=== PATIENT | male | born 1945 | race Hispanic/Latino ===

== ENCOUNTER 2022-05-29 13:40 | Observation (INO) | payer MEDICARE ==
[~2022-05-29] VITALS: Ht 154.9 cm; Wt 83.9 kg
[~2022-05-29 13:40] MED LIST: FINASTERIDE5 MG PO; LISINOPRIL10 MG PO; TAMSULOSIN HCL0.4 MG PO
[2022-05-29] MEDS ORDERED: ONDANSETRON HCL INJ 2MG/ML 2ML 2 MG/ML VIAL IV STA (14:05)
[2022-05-29] MEDS ORDERED: SODIUM CHLORIDE FLUSH 10 ML SYR IV PRN (14:15)
[2022-05-29 14:17] LABS: BASOPHILS % 0.5 % (0.0-1.0); EOSINOPHILS # (AUTO) 0.1 (0.0-0.4); EOSINOPHILS % 2.2 % (0.0-6.0); HEMATOCRIT 43.3 % (38.2-49.6); HEMOGLOBIN 14.2 g/dL (14.0-18.0); LYMPHOCYTES # (AUTO) 2.2 (1.0-3.2); LYMPHOCYTES % 34.9 % (18.0-39.1); MEAN CORPUSCULAR HEMOGLOBIN 31.3 pg (28-32); MEAN CORPUSCULAR HGB CONC 32.8 g/dL (31-35); MEAN CORPUSCULAR VOLUME 95.4 fL (81-99); MONOCYTES # (AUTO) 0.4 (0.2-0.8); MONOCYTES % 6.5 % (4.4-11.3); NEUTROPHILS # (AUTO) 3.5 (2.1-6.9); NEUTROPHILS % 55.1 % (38.7-80.0); PLATELET COUNT 207 x10e3/uL (140-360); RED BLOOD COUNT 4.54 x10e6/uL (4.3-5.7); RED CELL DISTRIBUTION WIDTH 12.9 % (11.7-14.4)
[2022-05-29 14:27] LABS: INR 0.95; PROTHROMBIN TIME 13.5 seconds (11.9-14.5)
[2022-05-29 14:31] LABS: PARTIAL THROMBOPLASTIN TIME 20.6 seconds (23.8-35.5)
[2022-05-29 14:38] LABS: ALANINE AMINOTRANSFERASE 21 IU/L (0-55); ALBUMIN 3.7 g/dL (3.5-5.0); ALBUMIN/GLOBULIN RATIO 1.1 (0.8-2.0); ALKALINE PHOSPHATASE 74 IU/L (40-150); ANION GAP 17.5 mmol/L (8-16); BLOOD UREA NITROGEN 19 mg/dL (7-26); BUN/CREATININE RATIO 24 (6-25); CALCIUM 8.6 mg/dL (8.4-10.2); CARBON DIOXIDE 20 mmol/L (22-29); CHLORIDE 107 mmol/L (98-107); CREATININE, SERUM 0.79 mg/dL (0.72-1.25); GLUCOSE 169 mg/dL (74-118); POTASSIUM 3.5 mmol/L (3.5-5.1); SODIUM 141 mmol/L (136-145)
[2022-05-29] MEDS ORDERED: ONDANSETRON HCL INJ 2MG/ML 2ML 2 MG/ML VIAL IV PRN (16:00)
[2022-05-29 16:04] LABS: CLARITY,URINE SL CLOUDY (CLEAR); COLOR,URINE STRAW (YELLOW); KETONES,URINE NEGATIVE (NEGATIVE); LEUKOCYTE ESTERASE ,URINE NEGATIVE (NEGATIVE); NITRITE,URINE NEGATIVE (NEGATIVE); PROTEIN,URINE DIPSTICK NEGATIVE (NEGATIVE); URINE UROBILINOGEN 0.2 mg/dL (0.2 - 1)
[2022-05-29 16:05] LABS: AMPHETAMINES SCREEN,URINE NEGATIVE (NEGATIVE); BENZODIAZEPINES SCREEN,URINE NEGATIVE (NEGATIVE); PHENCYCLIDINE SCREEN,URINE NEGATIVE (NEGATIVE)
[2022-05-29 16:19] LABS: AMORPHOUS SEDIMENT,URINE FEW (FEW); BACTERIA,URINE FEW /HPF; EPITHELIAL CELLS,URINE FEW /LPF; HYALINE CASTS 0-1 (0-1); MUCUS,URINE MODERATE (RARE); WBC,URINE (MAN) 0-5 /HPF (0-5)
[2022-05-29] MEDS: SODIUM CHLORIDE 0.9% 1000ML 1,000 ML IV SCH (16:32)
[2022-05-29 22:10] VITALS: BP 141/80
[2022-05-29 22:25] LABS: CREATINE KINASE 95 IU/L (30-200)
[2022-05-29] MEDS ORDERED: PROMETHAZINE 12.5MG/ NACL 0.9% 12.5 MG/50 ML BAG IV PRN (22:30)
[2022-05-29 23:00] VITALS: BP 141/80
[2022-05-30] VITALS (7 sets, daily range): BP systolic 105–145; BP diastolic 61–94
[2022-05-30] MEDS: SODIUM CHLORIDE 0.9% 1000ML 1,000 ML IV SCH ×2 (05:19→21:11)
[2022-05-30 06:14] LABS: BASOPHILS % 0.3 % (0.0-1.0); EOSINOPHILS # (AUTO) 0.1 (0.0-0.4); EOSINOPHILS % 0.9 % (0.0-6.0); HEMATOCRIT 38.8 % (38.2-49.6); HEMOGLOBIN 12.6 g/dL (14.0-18.0); LYMPHOCYTES # (AUTO) 1.8 (1.0-3.2); LYMPHOCYTES % 28.1 % (18.0-39.1); MEAN CORPUSCULAR HEMOGLOBIN 31.6 pg (28-32); MEAN CORPUSCULAR HGB CONC 32.5 g/dL (31-35); MEAN CORPUSCULAR VOLUME 97.2 fL (81-99); MONOCYTES # (AUTO) 0.5 (0.2-0.8); MONOCYTES % 7.2 % (4.4-11.3); NEUTROPHILS % 63.2 % (38.7-80.0); PLATELET COUNT 183 x10e3/uL (140-360); RED BLOOD COUNT 3.99 x10e6/uL (4.3-5.7); RED CELL DISTRIBUTION WIDTH 12.8 % (11.7-14.4)
[2022-05-30] MEDS ORDERED: MELOXICAM7.5 MG PO (06:31)
[2022-05-30 06:46] LABS: CREATINE KINASE MB 2.4 ng/mL (0-5.0)
[2022-05-30 06:49] LABS: ALBUMIN 3.1 g/dL (3.5-5.0); ALBUMIN/GLOBULIN RATIO 1.1 (0.8-2.0); ANION GAP 11.8 mmol/L (8-16); CALCIUM 8.3 mg/dL (8.4-10.2); CREATININE, SERUM 0.7 mg/dL (0.72-1.25); POTASSIUM 3.8 mmol/L (3.5-5.1)
[2022-05-30 09:55] LABS: MAGNESIUM 1.9 MG/DL (1.3-2.1)
[2022-05-30 10:51] LABS: THYROID STIMULATING HORMONE 0.918 uIU/mL (0.350-4.940)
[2022-05-30] MEDS: MECLIZINE HCL 12.5 MG TAB PO SCH ×3 (10:57→21:11)
[2022-05-30] MEDS ORDERED: TAMSULOSIN HCL 0.4 MG CAP ONE (11:04)
[2022-05-30] MEDS ORDERED: MECLIZINE HCL 12.5 MG TAB ONE (11:04)
[2022-05-30] MEDS ORDERED: CEFTRIAXONE 1 GM VIAL ONE (11:05)
[2022-05-30] MEDS ORDERED: TAMSULOSIN HCL 0.4 MG CAP PO SCH (17:00)
[2022-05-31] VITALS: BP 104/72
[2022-05-31] MEDS: MECLIZINE HCL 12.5 MG TAB PO SCH (05:18)
[2022-05-31 06:38] LABS: ANION GAP 11.6 mmol/L (8-16); CALCIUM 7.9 mg/dL (8.4-10.2); CREATININE, SERUM 0.67 mg/dL (0.72-1.25); POTASSIUM 3.6 mmol/L (3.5-5.1)
[2022-05-31 08:00] VITALS: BP 124/76
[2022-05-31 08:38] VITALS: BP 124/76
[2022-05-31] MEDS: SODIUM CHLORIDE 0.9% 1000ML 1,000 ML IV SCH (08:39)
[2022-05-31] MEDS ORDERED: FINASTERIDE 5 MG TAB PO SCH (09:00)
[2022-05-31] MEDS ORDERED: CYANOCOBALAMIN INJ 1,000 MCG/ML VIAL IM ONE (09:15)
[2022-05-31] MEDS ORDERED: MIDODRINE 2.5 MG TAB PO ONE (09:15)
[2022-05-31] MEDS ORDERED: FOLIC ACID 1 MG TAB PO ONE (09:15)
== END 2022-05-31 10:34 | disposition home or self-care (01) ==
LOC: ER 13:52 → ERHOLD 16:00 → MED/SURG3 22:10
PROVIDERS: ADMIT Internal Medicine; ATTEND Internal Medicine
DX: R00.1 Bradycardia, unspecified (principal); E86.0 Dehydration; I95.2 Hypotension due to drugs; T44.4X5A Adverse effect of predominantly alpha-adrenoreceptor agonists, initial encounter; Z20.822 Contact with and (suspected) exposure to COVID-19; E78.5 Hyperlipidemia, unspecified; M19.90 Unspecified osteoarthritis, unspecified site; N40.0 Benign prostatic hyperplasia without lower urinary tract symptoms; R11.2 Nausea with vomiting, unspecified
CPT/HCPCS: 36415 ×3; 70450; 70551; 71045; 80048; 80053 ×2; 80307; 81001; 82550 ×2; 82553 ×2; 82607; 82746; 83735; 84443; 84484 ×2; 85025 ×2; 85610; 85730; 93005; 93880; 94760; 97161; 99284; G0378 ×3; J0696 ×2; J2405; J2550; J7030 ×2; J8597 ×2; U0002